=== PATIENT | female | born 2000 | race African-American/Black ===

== ENCOUNTER 2025-02-14 08:50 | Emergency (ER) | payer OTHER ==
[~2025-02-14] VITALS: Ht 167.6 cm; Wt 81.8 kg
[2025-02-14 08:55] VITALS: TEMP 98.4
[2025-02-14] MEDS: IBUPROFEN 600 MG TABLET PO ONE (09:28)
[2025-02-14 09:30] VITALS: BP 126/68; PULSE 72; RESP 18; O2SAT 100
[2025-02-14] MEDS ORDERED: IBUP-1492 PO (10:54)
[2025-02-14] MEDS ORDERED: ACET-3385 PO (10:54)
== END 2025-02-14 11:59 | disposition home or self-care (01) ==
LOC: EMS 08:50
DX: S83.92XA Sprain of unspecified site of left knee, initial encounter (principal); M25.552 Pain in left hip; W11.XXXA Fall on and from ladder, initial encounter; Y93.89 Activity, other specified; Y92.89 Other specified places as the place of occurrence of the external cause; Y99.8 Other external cause status
CPT/HCPCS: 73503; 99284